=== PATIENT | female | born 1940 | race Caucasian/White ===

== ENCOUNTER 2025-05-03 14:39 | Emergency (ER) | payer MEDICARE ==
[~2025-05-03] VITALS: Ht 167.6 cm; Wt 56.7 kg
[2025-05-03 15:16] LABS: IMMATURE GRANULOCYTE ABSOLUTE 0.01 K/uL (0-1); NUCLEATED RED BLOOD CELLS 0.0 % (0.0-0.19); PLATELET COUNT (AUTO) 224 K/uL (130-400); RED BLOOD CELL COUNT(AUTO) 4.21 MIL/uL (4.00-5.50); RED CELL DISTRIBUTION WIDTH 12.6 % (11.0-15.5); WHITE BLOOD COUNT (AUTO) 5.2 K/uL (4.8-10.8)
--- NOTE | 2025-05-03 15:21 | ERN ---
General Chief Complaint: Lower Extremity Pain/Injury Stated Complaint: REDNESS TO BILAT LEGS Time Seen by MD: 14:41 Source: patient History of Present Illness Initial Comments Patient is a an 84-year-old female coming in complaining of lower extremity pain and discoloration for six months. Patient was seen by a rodeo rider and per patient her diagnosis was old age. Patient comes in today for ongoing evaluation. Allergies: Coded Allergies: No Known Drug Allergies (Unverified Allergy, Unknown, 05/03/25) Past Medical History Past Medical History: Anxiety, High Cholesterol Past Surgical History: BTL ROS Dictation CONSTITUTIONAL: No chills, no fever, no weakness, no diaphoresis, no malaise. HEAD/FACE: No signs of trauma. EENT: No eye pain, no blurred vision, no tearing, no double vision, no ear pain, no ear discharge, no nose pain, no nasal congestion, no throat pain, no throat swelling, no mouth pain. RESPIRATORY: No cough, no orthopnea, no SOB, no stridor, no wheezing. CARDIOVASCULAR: No chest pain, no edema, no palpitations, no syncope. GASTROINTESTINAL/ABDOMINAL: No abdominal pain, no constipation, no diarrhea, no nausea, no vomiting. GENITOURINARY: No abnormal discharge, no dysuria, no frequent urination, no hematuria. No complaints of pain in the genitals. MUSCULOSKELETAL: No back pain, no gout, no joint pain, no joint swelling, no muscle pain, no muscle stiffness, no neck pain. INTEGUMENTARY: No change in color, no change in hair/nails, no dryness, no lesion, no lumps, no rash. NEUROLOGICAL/PSYCH: No anxiety, not depressed, no emotional problem, no headache, no numbness, no pre-existing deficit, no history of seizures, no alyssa mors, no weakness. HEMATOLOGIC/LYMPHATIC: Not anemic, no history of blood clots, no apparent bleeding, no bruising, glands not swollen. All Systems Negative, Except as Noted. Physical Exam Physical Exam Dictation VITAL SIGNS: Reviewed. GENERAL APPEARANCE: Alert, oriented x3, no acute distress, obese. HEAD AND FACE: Non-traumatic. EYES: PERRL, pink conjunctivas, eyelid no trauma, anterior chamber clear. EARS: Pinnas intact and no signs of trauma or erythema. Ear canals clear and no discharge. TMs no erythema. NOSE: No discharge, no bleeding. OROPHARYNX: Mouth normal, teeth no caries, tongue pink. Pharynx clear, no erythema. Tonsils no exudates, no abscesses noted. Mucous membrane moist. NECK: Supple, non-tender, no thyromegaly, no masses, no JVD, no bruits. BREAST: Deferred. CHEST: No tenderness, no crepitus, no paradoxical movement, no retractions. LUNGS: Clear, well-ventilated, symmetric, no rales, no wheezing, no rhonchi, no stridor, good breath sounds bilaterally. HEART: Regular rate, regular rhythm, no murmur, no gallops. VASCULAR: No peripheral edema. ABDOMEN: Soft, positive bowel sounds, nondistended, no guarding, nontender, no rebound, no masses no hepatomegaly, no splenomegaly, no Castillo's sign, no hernias. RECTAL: Deferred. GENITAL: Deferred. NEUROLOGICAL: Normal speech, gross motor function intact, gross sensory function intact. MUSCULOSKELETAL: Neck nontender, full range of motion, back nontender, full range of motion. EXTREMITIES: Nontender, full range of motion. SKIN: Color pink, dry, no turgor, no rash, no lacerations, no abrasions, no contusions. LYMPHATICS: Deferred. Results Laboratory and Microbiology Lab and Micro Result Laboratory Tests Test 05/03/25 15:05 White Blood Count 5.2 K/uL (4.8-10.8) Red Blood Count 4.21 MIL/uL (4.00-5.50) Hemoglobin 13.2 g/dL (12.0-16.0) Hematocrit 39.7 % (36-48) Mean Corpuscular Volume 94.3 fL (79-99) Mean Corpuscular Hemoglobin 31.4 pg (27.0-33.0) Mean Corpuscular Hemoglobin Concent 33.2 g/dL (32.0-36.0) Red Cell Distribution Width 12.6 % (11.0-15.5) Platelet Count 224 K/uL (130-400) Mean Platelet Volume 10.2 fL (7.5-10.5) Immature Granulocyte % (Auto) 0.2 % (0-1) Neutrophils (%) (Auto) 48.8 % (40.0-77.0) Lymphocytes (%) (Auto) 39.4 % (21.0-51.0) Monocytes (%) (Auto) 8.5 % (3.0-13.0) Eosinophils (%) (Auto) 2.3 % (0.0-8.0) Basophils (%) (Auto) 0.8 % (0.0-5.0) Neutrophils # (Auto) 2.5 K/uL (1.8-7.7) Lymphocytes # (Auto) 2.0 K/uL (1.0-4.8) Monocytes # (Auto) 0.4 K/uL (0.1-1.0) Eosinophils # (Auto) 0.12 K/uL (0.00-0.70) Basophils # (Auto) 0.04 K/uL (0.00-0.20) Absolute Immature Granulocyte (auto 0.01 K/uL (0-1) Nucleated Red Blood Cells 0.0 % (0.0-0.19) Sodium Level 143 mmol/L (136-145) Potassium Level 3.5 mmol/L (3.5-5.1) Chloride Level 106 mmol/L (101-111) Carbon Dioxide Level 30 mmol/L (21-32) Blood Urea Nitrogen 23 mg/dL (7-18) H Creatinine 0.6 mg/dL (0.5-1.0) Glomerular Filtration Rate Calc 89 mL/min (>90) Random Glucose 94 mg/dL (70-105) Total Calcium 9.1 mg/dL (8.5-10.1) Labs Reviewed?: Yes EKG/XRAY/US/CT/MRI Ultrasound Comment Ultrasound arterial lower extremity- within normal limits MDM MDM: Differential diagnosis: Lower extremity wound, PID, arterial sclerosis, Rationale: Tests considered and ordered secondary to shared decision making include: Previous outside records reviewed: Old ER visits. Risk of complication and/or morbidity or mortality of patient management: None Medications-Per medication reconciliation Need for hospitalization: Patient does not meet criteria for hospitalization. Need for emergency major/minor surgery: No Patient is a an 84-year-old female coming in complaining of lower extremity color change. Per patient she has been dealing with this for six months. Patient was evaluated by rodeo rider but patient is here for further evaluation. On physical exam she has got a laceration to the left lower extremity medial aspect of it and states that she has been by a dog couple of days ago. She states that she is not complaining of that but because this wound is there antibiotics we provided. As far as her discoloration of the lower extremity I advised her appropriate follow up with the PCP and I will once again sent her to rodeo rider. ED Course Orders Procedure Category Date Status Time Cbc With Differential LAB 05/03/25 Complete 14:48 Basic Metabolic Panel LAB 05/03/25 Complete 14:48 Us Arterial Bilat Low US 05/03/25 Taken Ext Dupl 14:48 Vital Signs Date Time Temp Pulse Resp B/P (MAP) Pulse Ox O2 Delivery O2 Flow Rate FiO2 05/03/25 16:04 97.5 66 18 146/61 100 Room Air* 0 21 05/03/25 14:41 97.2 78 18 155/79 97 Room Air 0 DX & DISP Disposition: Discharge Departure Impression: Primary Impression: Wound of lower extremity Additional Impression: Peripheral artery disease Condition: Stable Scripts Cephalexin Monohydrate (Keflex) 500 Mg Cap 1 CAP PO TID for 10 Days, #30 CAP 0 Refills Prov: LORRIE FREEMAN MD 05/03/25 Additional Instructions: FOLLOW-UP WITH PRIMARY CARE PROVIDER IN 1 TO 2 DAYS. TAKE MEDICATIONS DIRECTED HERE IN THE EMERGENCY ROOM. OKAY TO CONTINUE HOME MEDICATIONS UNLESS OTHERWISE DISCUSSED DURING YOUR VISIT IN THE EMERGENCY ROOM TODAY. RETURN TO YOUR NEAREST EMERGENCY ROOM IF SYMPTOMS WORSEN OR IF THERE IS NO IMPROVEMENT. CALL 911 IF YOU NEED IMMEDIATE ASSISTANCE. TAKE TYLENOL [id number] NEEDED AND IF NO CONTRAINDICATIONS ARE PRESENT. INCREASE ORAL HYDRATION. A WOUND CULTURE OR URINE CULTURE WAS ORDERED HERE IN THE EMERGENCY ROOM DEPARTMENT PLEASE FOLLOW-UP WITH PRIMARY CARE PROVIDER AND ADVISE THEM TO GET REPORTS FROM OUR FACILITY. IF YOU HAD ANY NADIRA WRAP/SPLINTS THAT WERE APPLIED HERE, PLEASE DO NOT REMOVE THEM UNTIL YOU SEE YOUR PRIMARY CARE OR SPECIALTY. Referrals: Referrals: SELF,REFERRAL (PCP) GARLAND LEÓN LUIS A MD Time of Disposition: 16:28 LORRIE FREEMAN MD May 03, 2025 15:21
[2025-05-03 15:23] LABS: CREATININE 0.6 mg/dL (0.5-1.0); GLOMERULAR FILTR. RATE CALC 89.0 mL/min (>90); GLUCOSE,RANDOM 94.0 mg/dL (70-105); SODIUM SERUM 143.0 mmol/L (136-145); UREA NITROGEN, BLOOD 23.0 mg/dL (7-18)
[2025-05-03] MEDS ORDERED: CEPH500B PO (16:29)
--- NOTE | 2025-05-03 16:53 | HMCIMG ---
EXAM: US Duplex Bilateral Lower Extremity Arteries. CLINICAL HISTORY: leg pain coldness TECHNIQUE: Real-time ultrasound scan of the arteries of the bilateral lower extremity with 2-D chand scale, color Doppler flow and spectral waveform analysis. COMPARISON: None provided. FINDINGS: COMMON FEMORAL ARTERY: Bilateral common femoral arteries show normal velocity and waveform. No occlusion or significant stenosis. Normal SUPERFICIAL FEMORAL ARTERY: Bilateral superficial femoral arteries show normal velocity and waveform No occlusion or significant stenosis. Normal POPLITEAL ARTERY: Bilateral popliteal arteries show normal velocity and waveform. No occlusion or significant stenosis. Normal CALF ARTERIES: Bilateral posterior tibial, anterior tibial and dorsalis pedis artery show normal velocity and biphasic waveform. No occlusion or significant stenosis. Normal IMPRESSION: 1. No acute arterial abnormalities in bilateral lower extremities. /[place]
[2025-05-03 16:55] VITALS: BP 135/60; PULSE 67; RESP 17; TEMP 97.5; O2SAT 98
== END 2025-05-03 17:05 | disposition home or self-care (01) ==
LOC: EDH 14:39
DX: S80.922A Unspecified superficial injury of left lower leg, initial encounter (principal); I73.9 Peripheral vascular disease, unspecified; E78.00 Pure hypercholesterolemia, unspecified; F41.9 Anxiety disorder, unspecified; X58.XXXA Exposure to other specified factors, initial encounter; Y93.89 Activity, other specified; Y92.89 Other specified places as the place of occurrence of the external cause; Y99.8 Other external cause status
CPT/HCPCS: 36415; 80048; 85025; 93925; 99284

== ENCOUNTER 2025-06-10 07:51 | Emergency (ER) | payer MEDICARE ==
[~2025-06-10] VITALS: Ht 167.6 cm; Wt 54.4 kg
[~2025-06-10 07:51] MED LIST: CEPH500B PO
[2025-06-10 07:56] VITALS: TEMP 97.3
--- NOTE | 2025-06-10 08:54 | NUR ---
DEBRIDED WOUNDS AND CLEANED WITH NS, APPLIED WOUND SPRAY, APPLIED STERISTRIPS, COVERED WOUNDS WITH PETROLUEM GAUZE THEN COVERED WITH GAUZE AND WRAPPED WITH KERLEX AND SECURED WITH TAPE
[2025-06-10] MEDS: LIDOCAINE/PRILOCAINE CREAM 5GM TUBE TP ONE ×2 (09:05)
--- NOTE | 2025-06-10 09:05 | ERN ---
ED Note History of Present Illness Stated Complaint: LACERATION Chief Complaint: Laceration/Avulsion Time Seen by MD: 07:59 Dictation: 84-year-old female presenting to the emergency department after abrasion and laceration to the legs bilaterally after tripping over a metal ornament while out shopping. Patient able to ambulate well however this occurred 12 hours ago and then came in for evaluation of laceration Allergies: Coded Allergies: No Known Drug Allergies (Unverified Allergy, Unknown, 05/03/25) Home Meds Active Scripts Cephalexin Monohydrate (Keflex) 500 Mg Cap, 1 CAP PO TID for 10 Days, #30 CAP 0 Refills Prov:LORRIE FREEMAN MD 05/03/25 Past Medical History Past Medical History: Anxiety, High Cholesterol Surgical History: Tonsillectomy, BTL Review of System Dictation Constitutional: Negative for fever,chills, and weight loss Eyes: Negative for injury, pain,redness, and discharge ENT: Negative for injury,pain or swelling Cardiovascular: Negative for chest pain, palpitations, and edema Respiratory: Negative for shortness of breath, cough, and wheezing, Abdomen/GI: Negative for abdominal pain, nausea, vomiting, diarrhea, and constip ation Back: Negative for injury and pain : Negative for injury, bleeding and discharge MS/Extremity: Negative for injury and deformity Skin: Per HPI Neuro: Negative for headache, weakness, numbness, tingling, and seizure Psych: Negative for suicide ideation, homicidal ideation, and hallucinations Initial Vital Sign VS Vital Signs Date Time Temp Pulse Resp B/P (MAP) Pulse Ox O2 Delivery O2 Flow Rate FiO2 06/10/25 07:56 97.3 68 18 118/52 98 Room Air Physical Exam Dictation General: awake, alert, NAD Head/Face: Normocephalic, atraumatic Eyes: PERRL, EOMI, vision at baseline ENT: oral cavity clear, TMs clear, no signs of infection Neck: Trachea midline, supple, no nuchal rigidity Cardiovascular: RRR, normal S1/S2, No MRGs, no JVD Respiratory: CTAB, no respiratory distress, No rales or wheezes Abdomen: Soft, non-tender, non-distended, normal bowel sounds, no guarding or rebound. Skin: Warm, dry, normal turgor, laceration to posterior aspect of left calf, 8 cm with skin tear, puncture went to right calf area small 1 cm, no active bleeding MS/Extremity: Pulses equal, no cyanosis, neurovascular intact, FROM Neuro: COAx4, GCS 15, strength 5/5, CN 2-12 intact, normal cerebellar exam, norm al gait, Psych: Normal behavior, mood, and affect normal ED Course ED Course Orders Procedure Category Date Status Time Lidocaine/Prilocaine PHA 06/10/25 Complete (Emla) 08:24 Lidocaine/Prilocaine PHA 06/10/25 Complete (Emla) 09:00 *Nursing CPOE 06/10/25 Transmitted Communication: 08:52 Tetanus,Diphtheria PHA 06/10/25 Complete Tox [Adult] (Diphther 09:00 Current Medications Medications (Trade) Dose Ordered Sig/Mallorie Route PRN Reason Start Time Stop Time Status Last Admin Dose Admin Lidocaine/ Prilocaine (Emla) ONCE ONCE TP 06/10/25 09:00 06/10/25 09:01 DC Lidocaine/ Prilocaine (Emla) 1 appl STK-MED ONCE TP 06/10/25 08:24 06/10/25 08:24 DC Tetanus/ Diphtheria Toxoids Adsorbed (DiphthERIA-teTANUS TOXOID [ADULT]/ DECAVAC) 0.5 ml ONCE ONCE IM 06/10/25 09:00 06/10/25 09:01 DC 06/10/25 09:04 Vital Signs Date Time Temp Pulse Resp B/P (MAP) Pulse Ox O2 Delivery O2 Flow Rate FiO2 06/10/25 07:56 97.3 68 18 118/52 98 Room Air Medical Decision Making MDM MDM: Differential diagnosis: Rationale: Tests considered and ordered secondary to shared decision making include: Previous outside records reviewed: Old ER visits. Risk of complication and/or morbidity or mortality of patient management: None Medications-Per medication reconciliation Need for hospitalization: Patient does not meet criteria for hospitalization. Need for emergency major/minor surgery: No There are no social concerns with this patient. Prescription drug management Prescriptions will include symptomatic care Patient's prior external medical records from other ER visits were reviewed by me as indicated. Prior testing and results from previous visits were reviewed. Prior tests were taken into account with medical decision making and resource utilization, independent historian/historians were used to obtain complete medical history. I independently interpreted the test that were performed, results were reviewed by me and considered findings on radiology if ordered. Medical management and examination interpretation discussions were had by me with other qualified healthcare professionals as indicated for the patient's care. 84-year-old female with superficial lacerations to the posterior aspect of both calves, tetanus updated wound was irrigated washed, over 12 hours old with mostly skin tear, did not require suturing due to delayed closure, wound was irrigated Steri-Strips were placed and nonadhesive dressing placed on antibiotics due to concern for infection risk Procedure Wound Location: lower extremity Wound Length (cm): 8 Wound's Depth, Shape: superficial, irregular, flap Wound Debrided: extensive Wound Repaired With: Steri-strips DX & DISP Disposition: Discharge Departure Impression: Primary Impression: Wound of lower extremity Condition: Stable Scripts Cephalexin Monohydrate (Keflex) 500 Mg Cap 500 MG PO BID for 7 Days, #14 CAP Prov: FIORELLA TREVIÑO MD 06/10/25 Referrals: SELF,REFERRAL (PCP) FIORELLA TREVIÑO MD Jun 10, 2025 09:04
[2025-06-10] MEDS ORDERED: CEPH500B PO (09:06)
[2025-06-10 09:11] VITALS: BP 117/53; PULSE 65; RESP 16; O2SAT 97
== END 2025-06-10 09:48 | disposition home or self-care (01) ==
LOC: EDH 07:51
DX: S81.812A Laceration without foreign body, left lower leg, initial encounter (principal); S81.811A Laceration without foreign body, right lower leg, initial encounter; E78.00 Pure hypercholesterolemia, unspecified; F41.9 Anxiety disorder, unspecified; Z90.89 Acquired absence of other organs; Z98.51 Tubal ligation status; W18.09XA Striking against other object with subsequent fall, initial encounter; Y93.89 Activity, other specified; Y92.89 Other specified places as the place of occurrence of the external cause; Y99.8 Other external cause status
CPT/HCPCS: 90471; 90714; 99283; J3490